=== PATIENT | female | born 1975 | race Native Hawaiian/Other Pacific Islander ===

== ENCOUNTER 2023-01-31 07:48 | Emergency (ER) | payer SELFPAY ==
[~2023-01-31] VITALS: Ht 160 cm; Wt 84.1 kg
[2023-01-31 07:57] VITALS: TEMP 98.9
[2023-01-31 09:02] LABS: COLLECTION METHOD CLEAN CATCH
[2023-01-31 09:22] LABS: SQUAMOUS EPITHELIAL 0-2 /hpf (0-10); URINE BACTERIA None Seen /hpf (NONE SEEN)
[2023-01-31 09:29] LABS: STREP SCREEN POSITIVE
[2023-01-31 09:30] LABS: URINE APPEARANCE Clear (CLEAR/HAZY); URINE BLOOD 2+ (NEGATIVE); URINE COLOR Yellow (YELLOW); URINE GLUCOSE Negative (NEGATIVE); URINE KETONE Negative (NEGATIVE); URINE NITRATE Negative (NEGATIVE); URINE PROTEIN(semi-quant) 2+ (NEGATIVE); URINE UROBILINOGEN 0.2 E.U/dL (0.2-1.0)
[2023-01-31 10:18] VITALS: BP 114/72; PULSE 91
== END 2023-01-31 10:18 | disposition home or self-care (01) ==
LOC: COL.ER 07:48
PROVIDERS: Emergency Medicine
DX: J02.0 Streptococcal pharyngitis (principal); Z28.310 Unvaccinated for COVID-19; Z20.822 Contact with and (suspected) exposure to COVID-19
CPT/HCPCS: J0561

== ENCOUNTER 2023-03-13 20:08 | Emergency (ER) | payer SELFPAY ==
[~2023-03-13] VITALS: Ht 160 cm; Wt 86.4 kg
[2023-03-13 21:33] VITALS: BP 128/83; PULSE 80; TEMP 98.6
== END 2023-03-13 21:40 | disposition home or self-care (01) ==
LOC: COL.ER 20:08
DX: R05.9 Cough, unspecified (principal); Z28.310 Unvaccinated for COVID-19

== ENCOUNTER 2023-12-02 18:02 | Emergency (ER) | payer SELFPAY ==
[~2023-12-02] VITALS: Ht 160 cm; Wt 95.5 kg
[~2023-12-02 18:02] MED LIST: CEFTIN 250250 MG/TAB PO
[2023-12-02 18:29] VITALS: TEMP 98.7
[2023-12-02 19:44] VITALS: BP 123/84; PULSE 94
== END 2023-12-02 19:58 | disposition home or self-care (01) ==
LOC: COL.ER 18:02
DX: J10.1 Influenza due to other identified influenza virus with other respiratory manifestations (principal)

== ENCOUNTER → 2024-01-28 | Outpatient (CLI) | payer OTHER ==
[~2024-01-28] MED LIST changes: +AMOXICILLIN 50500 MG PO
== END ==
LOC: MC.RAD 09:46
DX: N63.0 Unspecified lump in unspecified breast (principal); N64.4 Mastodynia

== ENCOUNTER 2024-02-28 04:29 | Emergency (ER) | payer OTHER ==
[~2024-02-28] VITALS: Ht 160 cm; Wt 95.5 kg
[2024-02-28 04:37] VITALS: TEMP 97.8
[2024-02-28 05:03] LABS: BASO # 0.1 K/mm3 (0.0-0.2); BASO % 0.5 % (0.0-2.0); EOS # 1.2 K/mm3 (0.0-0.7); EOS % 7.9 % (0.0-4.0); GRAN # 8.6 K/mm3 (1.4-6.5); HEMATOCRIT 38.1 % (37.0-47.0); HEMOGLOBIN 11.8 g/dl (12.5-16.0); LYMPH # 4.6 K/mm3 (1.2-3.4); LYMPH % 29.6 % (20.0-51.0); MEAN CELL VOLUME 80 fl (80.0-100.0); MEAN CORPUSCULAR HEMOGLOBIN 25 pg (27-31); MEAN CORPUSCULAR HGB CONC 31 g/dl (33.0-37.0); MEAN PLATELET VOLUME 10.2 fl (7.4-10.4); MONO % 6.7 % (1.7-9.3); PLATELET COUNT 311 K/mm3 (130-400); RED BLOOD COUNT 4.79 M/mm3 (4.10-5.30); REDCELL DISTRIBUTION WIDTH-CV 13.4 % (11.5-14.5)
[2024-02-28 05:19] LABS: PROTHROMBIN TIME 10.6 SECONDS (9.7-12.8)
[2024-02-28 05:21] LABS: PARTIAL THROMBOPLASTIN TIME 27.9 SECONDS (26.0-37.0)
[2024-02-28 05:31] LABS: ALANINE AMINOTRANSFERASE 14 U/L (0-55); ALBUMIN 3.6 g/dL (3.5-5.0); ALKALINE PHOSPHATASE 73 U/L (40-150); ANION GAP 11 mmol/L (7-16); AST,SGOT 19 U/L (5-34); BILIRUBIN,TOTAL 0.1 mg/dL (0.2-1.2); BLOOD UREA NITROGEN 14 mg/dL (7-19); C-REACTIVE PROTEIN 0.77 mg/dL (0.00-0.50); CALCIUM 9.5 mg/dL (8.4-10.2); CHLORIDE 108 mEq/L (98-107); GLUCOSE 128 mg/dL (70-99); LIPASE 41 U/L (8-78); POTASSIUM 3.8 mEq/L (3.5-4.5); SODIUM 139 mEq/L (136-145); TOTAL PROTEIN 8.4 g/dl (6.2-8.1)
[2024-02-28 05:37] LABS: TROPONIN-I < 0.010 ng/mL (0.00-0.033)
[2024-02-28] MEDS ORDERED: Iohexol 300 - 100 ML VIAL IV ONE (06:16)
[2024-02-28] MEDS ORDERED: NS 100 ML IV SCH (06:17)
[2024-02-28] MEDS ORDERED: Sucralfate Susp 1 GM/10 ML UD PO ONE (07:15)
[2024-02-28] MEDS ORDERED: REGLAN 10MG10 MG/TAB PO (08:14)
[2024-02-28] MEDS ORDERED: CARAFATE 1GM1 G PO (08:14)
[2024-02-28] MEDS ORDERED: Ketorolac 15 MG/ML VIAL IV ONE (08:15)
[2024-02-28 09:11] VITALS: BP 121/92; PULSE 65
== END 2024-02-28 09:21 | disposition home or self-care (01) ==
LOC: COL.ER 04:29
PROVIDERS: Emergency Medicine
DX: R07.89 Other chest pain (principal)
CPT/HCPCS: J1885; J2765; Q9967

== ENCOUNTER 2024-04-19 14:43 | Emergency (ER) | payer OTHER ==
[~2024-04-19] VITALS: Ht 160 cm; Wt 93.2 kg
[~2024-04-19 14:43] MED LIST changes: +CARAFATE 1GM1 G PO; +REGLAN 10MG10 MG/TAB PO
[2024-04-19 14:49] VITALS: BP 130/88; TEMP 97.8
[2024-04-19 17:28] VITALS: PULSE 62
== END 2024-04-19 17:30 | disposition home or self-care (01) ==
LOC: COL.ER 14:43
DX: H69.93 Unspecified Eustachian tube disorder, bilateral (principal)

== ENCOUNTER 2024-05-08 12:45 | Emergency (ER) | payer MEDICAID ==
[~2024-05-08] VITALS: Ht 160 cm; Wt 93.2 kg
[2024-05-08 12:50] VITALS: TEMP 97.6
[2024-05-08] MEDS ORDERED: NS 1,000 ML IV ONE (13:30)
[2024-05-08 13:40] LABS: ALBUMIN 3.5 g/dL (3.5-5.0); BILIRUBIN,TOTAL 0.2 mg/dL (0.2-1.2); CALCIUM 8.1 mg/dL (8.4-10.2); CREATININE, serum 0.81 mg/dL (0.57-1.11); POTASSIUM 3.8 mEq/L (3.5-4.5); TOTAL PROTEIN 7.8 g/dl (6.2-8.1)
[2024-05-08 13:48] LABS: MONOSCREEN NEGATIVE
[2024-05-08 13:56] LABS: COLLECTION METHOD CLEAN CATCH
[2024-05-08 14:01] LABS: BASO # 0.1 K/mm3 (0.0-0.2); BASO % 0.4 % (0.0-2.0); EOS # 0.8 K/mm3 (0.0-0.7); EOS % 6.8 % (0.0-4.0); GRAN # 6.7 K/mm3 (1.4-6.5); GRAN % 55.3 % (42.2-75.2); HEMOGLOBIN 11.1 g/dl (12.5-16.0); LYMPH # 3.7 K/mm3 (1.2-3.4); LYMPH % 30.4 % (20.0-51.0); MEAN CELL VOLUME 79 fl (80.0-100.0); MEAN CORPUSCULAR HEMOGLOBIN 24 pg (27-31); MEAN CORPUSCULAR HGB CONC 31 g/dl (33.0-37.0); MEAN PLATELET VOLUME 10.4 fl (7.4-10.4); MONO # 0.8 K/mm3 (0.1-0.6); MONO % 6.8 % (1.7-9.3); PLATELET COUNT 265 K/mm3 (130-400); RED BLOOD COUNT 4.63 M/mm3 (4.10-5.30); REDCELL DISTRIBUTION WIDTH-CV 13.3 % (11.5-14.5)
[2024-05-08 14:15] LABS: HEMATOCRIT 36.4 % (37.0-47.0)
[2024-05-08 14:21] LABS: URINE APPEARANCE CLEAR (CLEAR/HAZY); URINE BLOOD NEGATIVE (NEGATIVE); URINE COLOR YELLOW (YELLOW); URINE GLUCOSE NEGATIVE (NEGATIVE); URINE KETONE NEGATIVE (NEGATIVE); URINE NITRATE NEGATIVE (NEGATIVE); URINE PROTEIN(semi-quant) TRACE (NEGATIVE); URINE UROBILINOGEN 0.2 E.U/dL (0.2-1.0)
[2024-05-08 15:45] VITALS: BP 144/85; PULSE 57
== END 2024-05-08 16:13 | disposition home or self-care (01) ==
LOC: COL.ER 12:45
PROVIDERS: Nurse Practitioner
DX: R53.83 Other fatigue (principal)
CPT/HCPCS: J7030